=== PATIENT | female | born 1995 | race Hispanic/Latino ===

== ENCOUNTER 2020-04-06 14:18 | Emergency (ER) | payer OTHER ==
[2020-04-06 16:18] LABS: #Basophils 0.1 thou/uL (0.0-0.2); #Eosinphils 0.2 thou/uL (0.0-0.7); #Lymphocytes 2.9 thou/uL (1.20-3.40); #Monocytes 0.6 thou/uL (0.11-0.59); #Neutrophils 4.3 thou/uL (1.40-6.50); %Basophils 0.8 % (0.0-1.0); %Eosinophils 2.2 % (0.0-10.0); %Lymphocytes 35.9 % (21.0-51.0); %Monocytes 7.3 % (0.0-10.0); %Neutrophils 53.6 % (42.0-75.0); Hemoglobin 13.2 g/dL (12.0-16.0); Mean Corpuscular HGB CONC 33.6 g/dL (32.0-36.0); Mean Corpuscular Hemoglobin 30.8 pg (27.0-31.0); Mean Corpuscular Volume 91.9 fL (78.0-98.0); Mean Platelet Volume 7.4 fL (7.4-10.4); Platelet Count 310 thou/uL (130-400); RBC Distribution Width 11.9 % (11.5-14.5); Red Blood Cell (RBC) Count 4.27 mill/uL (4.20-5.40); White Blood Cell (WBC) Count 8.1 thou/uL (4.8-10.8)
[2020-04-06 17:08] LABS: ALT (SGPT) 23 U/L (8-55); AST (SGOT) 18 U/L (5-34); Alkaline Phosphatase 76 U/L (40-110); Anion Gap 13 mmol/L (10-20); BUN (Urea Nitrogen) 7 mg/dL (7.0-18.7); Bilirubin, Total 0.2 mg/dL (0.2-1.2); Calc. Creatinine Clearance 0 mL/min (70-130); Carbon Dioxide 22 mmol/L (22-29); Chloride 106 mmol/L (98-107); Glucose 90 mg/dL (70-105); Potassium 4.1 mmol/L (3.5-5.1); Sodium 137 mmol/L (136-145)
--- NOTE | 2020-04-06 17:12 | ULT ---
PELVIC ULTRASOUND: 04/06/20 HISTORY: and vaginal bleeding. Real time imaging o the pelvis was obtained both transabdominally as well as with an endovaginal prob e. This shows an intrauterine gestational sac with yolk sac and pole. [place] to rump length sam urements are 6 mm corresponding to 6 weeks, 3 days. heart rate is 126 beats per minute. Gestati onal sac is somewhat elongated in appearance. It lies somewhat eccentrically within the endometrium. I do not see a definite subchorionic bleed. Left ovary has small follicles. Right ovary is difficult to visualize but appears unremarkable. Color Doppler evaluation with spectral analysis. Normal flow is shown to both adnexa. IMPRESSION: Intrauterine gestational sac has a slightly eccentric appearance in the endometrium. This may just be related to position of the uterus. The gestational sac and crown to rump length measurements would c orrespond to a gestational age of 6 weeks, 4 days. Estimated date of delivery is 11/26/20. No subchorionic bleed is appreciated. POS: IGL
[2020-04-06 18:29] LABS: Bilirubin Negative (Negative); Blood, Urine Trace (Negative); Clarity Clear (Clear); Glucose, Urine (Dipstick) Normal (Negative); Ketone, Urine Negative (Negative); Leukocyte 75 Leu/uL (Negative); Nitrite Negative (Negative); Protein, Urine (Dipstick) Negative (Neg-Trace); RBC/HPF 0-3 HPF (0-3); Specific Gravity, Urine 1.005 (1.002-1.036); Squamous Epithelial 0-3 HPF (0-3); Urobilinogen Normal mg/dL (Less than 2); WBC/HPF 0-3 HPF (0-3)
[2020-04-06 18:30] LABS: Bacteria/HPF 2+ HPF (None Seen)
== END 2020-04-06 18:56 | disposition home or self-care (01) ==
LOC: ERS 14:18
DX: O20.9 Hemorrhage in early pregnancy, unspecified (principal); O23.91 Unspecified genitourinary tract infection in pregnancy, first trimester; O26.891 Other specified pregnancy related conditions, first trimester; R82.71 Bacteriuria; Z3A.01 Less than 8 weeks gestation of pregnancy
CPT/HCPCS: 36415; 76856; 80053; 81003; 81015; 84702; 85025; 86900; 86901

== ENCOUNTER 2020-07-08 08:30 | Outpatient (CLI) | payer OTHER | END 2020-07-08 08:31 | disposition home or self-care (01) | LOC: BICULT 08:30 | PROVIDERS: ATTEND Family Medicine | DX: O09.892 Supervision of other high risk pregnancies, second trimester (principal) | CPT/HCPCS: 76805 ==

== ENCOUNTER 2021-06-06 07:48 | Day surgery (SDC) | payer OTHER ==
[2021-06-05 15:30] VITALS: BMI 29.6
[2021-06-06] MEDS ORDERED: Midazolam HCl 2 mg/2 ml Vial ONE (08:53)
[2021-06-06] MEDS ORDERED: Sodium Bicarbonate 2.5 MEQ/5 ML VIAL ONE (08:53)
[2021-06-06] MEDS ORDERED: Fentanyl 100 MCG/2 ML VIAL ONE (08:53)
[2021-06-06 12:02] VITALS: TEMP 98.9
[2021-06-06] MEDS ORDERED: Morphine 4 MG/ML VIAL ONE (12:37)
[2021-06-06 13:18] VITALS: BP 130/66
== END 2021-06-06 13:35 | disposition short-term general hospital (02) ==
LOC: SPEC 07:48
PROVIDERS: ATTEND Urology
PROC: 0T9130Z Drainage of Left Kidney with Drainage Device, Percutaneous Approach (ICD-10-PCS; principal; 2021-06-06)
DX: N13.2 Hydronephrosis with renal and ureteral calculous obstruction (principal)
CPT/HCPCS: 50430; 50432; 74150; 76775; J2250; J2270; J3010

== ENCOUNTER 2021-06-06 13:44 | Inpatient (IN) | payer SELFPAY ==
[2021-06-06 14:35] LABS: Hemoglobin 12.4 g/dL (12.0-16.0); Mean Corpuscular HGB CONC 31.4 g/dL (32.0-36.0); Mean Corpuscular Hemoglobin 25.1 pg (27.0-31.0); Mean Corpuscular Volume 79.8 fL (78.0-98.0); Mean Platelet Volume 6.7 fL (7.4-10.4); Platelet Count 627 thou/uL (130-400); RBC Distribution Width 15.9 % (11.5-14.5); Red Blood Cell (RBC) Count 4.93 mill/uL (4.20-5.40); White Blood Cell (WBC) Count 7.4 thou/uL (4.8-10.8)
[2021-06-06 14:54] LABS: Anisocytosis SLIGHT = 6-15 cells (100X) (0-5/hpf); Band 24 % (5-11); Hypochromia SLIGHT = 6-15 cells (100X) (0-5/hpf); Lymphocytes 6 % (21-51); MDiff Complete? YES; Metamyelocyte 1 % (0-0); Monocytes 1 % (0-10); Neutrophil 68 % (42-75); Platelet Morphology Comment Appears Increased
[2021-06-06 14:55] LABS: ALT (SGPT) 23 U/L (8-55); AST (SGOT) 12 U/L (5-34); Albumin 4.2 g/dL (3.5-5.0); Alkaline Phosphatase 118 U/L (40-110); Anion Gap 15 mmol/L (10-20); BUN (Urea Nitrogen) 9 mg/dL (7.0-18.7); Bilirubin, Total 0.4 mg/dL (0.2-1.2); Calc. Creatinine Clearance 0 mL/min (70-130); Calcium 9.4 mg/dL (7.8-10.44); Carbon Dioxide 27 mmol/L (22-29); Chloride 104 mmol/L (98-107); Globulin 4.2 g/dL (2.4-3.5); Glucose 91 mg/dL (70-105); Potassium 3.5 mmol/L (3.5-5.1); Protein, Total 8.4 g/dL (6.0-8.3); Sodium 142 mmol/L (136-145)
[2021-06-06 15:03] LABS: BHCG - Serum Negative (NEGATIVE); Pregs Control Background? CLEAR/WHITE (CLR/WHITE); Pregs Control Bar Appear? YES (CONTROL BAR)
[2021-06-06] MEDS ORDERED: Morphine 4 MG/ML VIAL ONE (15:04)
[2021-06-06] MEDS ORDERED: Cefepime 2 GM VIAL ONE (15:04)
[2021-06-06] MEDS ORDERED: Acetaminophen 325 MG TAB ONE (15:24)
[2021-06-06 16:02] LABS: Bilirubin Negative (Negative); Blood, Urine 3+ (Negative); Clarity Turbid (Clear); Glucose, Urine (Dipstick) Normal (Negative); Ketone, Urine Negative (Negative); Leukocyte 500 Leu/uL (Negative); Nitrite Negative (Negative); Protein, Urine (Dipstick) 20 mg/dL (Neg-Trace); RBC/HPF Greater than 50 HPF (0-3); Specific Gravity, Urine 1.009 (1.002-1.036); Squamous Epithelial 0-3 HPF (0-3); Urobilinogen Normal mg/dL (Less than 2); WBC/HPF 21-50 HPF (0-3); pH, Urine 6.5 (5.0-9.0)
[2021-06-06 16:03] LABS: Bacteria/HPF 1+ HPF (None Seen)
[2021-06-06] MEDS ORDERED: Vancomycin 1 GM in Premix Bag 1 BAG IVPB SCH (16:45)
[2021-06-06 17:13] LABS: SARS-CoV-2 NAA Rapid Test Not Detected (NotDetected)
[2021-06-06] MEDS ORDERED: Acetaminophen 325 MG TAB PO PRN (18:00)
[2021-06-06] MEDS ORDERED: Ondansetron ODT 4 MG TAB PO PRN (18:00)
[2021-06-06] MEDS ORDERED: Acetaminophen 650 MG Suppository PR PRN (18:00)
[2021-06-06] MEDS ORDERED: Ondansetron PF 4 MG/2 ML Vial IVP PRN (18:00)
[2021-06-06] MEDS ORDERED: Morphine 4 MG/ML VIAL SLOW IVP PRN (18:21)
[2021-06-06] MEDS: Lactated Ringer's 1,000 ML IV SCH (20:29)
[2021-06-06 20:30] VITALS: BMI 27.9
[2021-06-06] MEDS: Acetaminophen 500 MG TAB PO SCH (21:15)
[2021-06-07] MEDS: Vancomycin HCl 750 MG in Sodium Chloride 0.9% 250 ML 250 ML IVPB SCH ×3 (01:27→18:12)
[2021-06-07] MEDS: Acetaminophen 500 MG TAB PO SCH ×2 (03:38→09:25)
[2021-06-07] MEDS: Cefepime 2 GM in Sodium Chloride 0.9% 100 ML IVPB SCH ×2 (03:38→15:42)
[2021-06-07] MEDS: Lactated Ringer's 1,000 ML IV SCH ×3 (03:47→15:44)
[2021-06-07 05:15] LABS: #Eosinphils 0.2 thou/uL (0.0-0.7); #Lymphocytes 1.1 thou/uL (1.20-3.40); #Monocytes 0.8 thou/uL (0.11-0.59); #Neutrophils 9.9 thou/uL (1.40-6.50); %Basophils 0.2 % (0.0-1.0); %Eosinophils 1.5 % (0.0-10.0); %Lymphocytes 9.4 % (21.0-51.0); %Monocytes 6.4 % (0.0-10.0); %Neutrophils 82.5 % (42.0-75.0); Hemoglobin 10.5 g/dL (12.0-16.0); Mean Corpuscular Hemoglobin 24.7 pg (27.0-31.0); Mean Corpuscular Volume 79.8 fL (78.0-98.0); Mean Platelet Volume 6.8 fL (7.4-10.4); Platelet Count 504 thou/uL (130-400); RBC Distribution Width 15.7 % (11.5-14.5); Red Blood Cell (RBC) Count 4.26 mill/uL (4.20-5.40)
[2021-06-07 05:37] LABS: ALT (SGPT) 52 U/L (8-55); AST (SGOT) 51 U/L (5-34); Albumin 3.5 g/dL (3.5-5.0); Alkaline Phosphatase 103 U/L (40-110); Anion Gap 11 mmol/L (10-20); BUN (Urea Nitrogen) 9 mg/dL (7.0-18.7); Bilirubin, Total 0.3 mg/dL (0.2-1.2); Calc. Creatinine Clearance 122 mL/min (70-130); Calcium 8.8 mg/dL (7.8-10.44); Carbon Dioxide 24 mmol/L (22-29); Chloride 105 mmol/L (98-107); Globulin 3.4 g/dL (2.4-3.5); Glucose 113 mg/dL (70-105); Potassium 3.6 mmol/L (3.5-5.1); Protein, Total 6.9 g/dL (6.0-8.3); Sodium 136 mmol/L (136-145)
[2021-06-07] MEDS ORDERED: HYDROcodone/Acetaminophen 5/325 mg Tablet PO PRN (06:56)
[2021-06-07] MEDS: HYDROcodone/Acetaminophen 5/325 mg Tablet PO PRN (09:24)
[2021-06-07] MEDS ORDERED: Acetaminophen 325 MG TAB PO PRN (09:28)
[2021-06-07 17:16] LABS: Vancomycin, Trough 7.9 ug/mL
[2021-06-07] MEDS ORDERED: Vancomycin 1 GM in Premix Bag 1 BAG IVPB SCH (20:00)
[2021-06-07] MEDS: Vancomycin HCl 1 GM in Sodium Chloride 0.9% 250 ML 250 ML IVPB SCH (20:50)
[2021-06-07 22:52] LABS: Bacteria/HPF 3+ HPF (None Seen); Bilirubin Negative (Negative); Blood, Urine Trace (Negative); Clarity Clear (Clear); Glucose, Urine (Dipstick) Normal (Negative); Ketone, Urine Negative (Negative); Leukocyte 500 Leu/uL (Negative); Nitrite Negative (Negative); Protein, Urine (Dipstick) Negative (Neg-Trace); Specific Gravity, Urine 1.005 (1.002-1.036); Squamous Epithelial 0-3 HPF (0-3); Urobilinogen Normal mg/dL (Less than 2); WBC/HPF 21-50 HPF (0-3); pH, Urine 7.5 (5.0-9.0)
[2021-06-08] MEDS: Cefepime 2 GM in Sodium Chloride 0.9% 100 ML IVPB SCH ×2 (02:17→14:35)
[2021-06-08] MEDS: Vancomycin HCl 1 GM in Sodium Chloride 0.9% 250 ML 250 ML IVPB SCH ×2 (03:13→12:00)
[2021-06-08 04:56] LABS: #Eosinphils 0.3 thou/uL (0.0-0.7); #Lymphocytes 2.1 thou/uL (1.20-3.40); #Monocytes 0.9 thou/uL (0.11-0.59); #Neutrophils 4.6 thou/uL (1.40-6.50); %Basophils 0.3 % (0.0-1.0); %Eosinophils 3.3 % (0.0-10.0); %Monocytes 11.2 % (0.0-10.0); %Neutrophils 58.3 % (42.0-75.0); Hemoglobin 10.6 g/dL (12.0-16.0); Mean Corpuscular HGB CONC 31.7 g/dL (32.0-36.0); Mean Corpuscular Hemoglobin 25.6 pg (27.0-31.0); Mean Corpuscular Volume 80.7 fL (78.0-98.0); Platelet Count 444 thou/uL (130-400); RBC Distribution Width 15.5 % (11.5-14.5); Red Blood Cell (RBC) Count 4.13 mill/uL (4.20-5.40); White Blood Cell (WBC) Count 7.9 thou/uL (4.8-10.8)
[2021-06-08 05:20] LABS: ALT (SGPT) 104 U/L (8-55); AST (SGOT) 62 U/L (5-34); Albumin 3.4 g/dL (3.5-5.0); Alkaline Phosphatase 120 U/L (40-110); Anion Gap 12 mmol/L (10-20); BUN (Urea Nitrogen) 7 mg/dL (7.0-18.7); Bilirubin, Total 0.2 mg/dL (0.2-1.2); Calc. Creatinine Clearance 131 mL/min (70-130); Calcium 8.9 mg/dL (7.8-10.44); Carbon Dioxide 26 mmol/L (22-29); Chloride 105 mmol/L (98-107); Globulin 3.5 g/dL (2.4-3.5); Glucose 102 mg/dL (70-105); Potassium 3.5 mmol/L (3.5-5.1); Protein, Total 6.9 g/dL (6.0-8.3); Sodium 139 mmol/L (136-145)
[2021-06-09 05:33] LABS: ALT (SGPT) 78 U/L (8-55); AST (SGOT) 29 U/L (5-34); Albumin 3.4 g/dL (3.5-5.0); Alkaline Phosphatase 118 U/L (40-110); Anion Gap 11 mmol/L (10-20); BUN (Urea Nitrogen) 8 mg/dL (7.0-18.7); Bilirubin, Total 0.2 mg/dL (0.2-1.2); Calc. Creatinine Clearance 141 mL/min (70-130); Calcium 8.7 mg/dL (7.8-10.44); Carbon Dioxide 24 mmol/L (22-29); Chloride 105 mmol/L (98-107); Globulin 3.7 g/dL (2.4-3.5); Glucose 99 mg/dL (70-105); Potassium 3.2 mmol/L (3.5-5.1); Protein, Total 7.1 g/dL (6.0-8.3); Sodium 137 mmol/L (136-145)
[2021-06-09 05:41] LABS: #Eosinphils 0.3 thou/uL (0.0-0.7); #Lymphocytes 2.9 thou/uL (1.20-3.40); #Monocytes 0.7 thou/uL (0.11-0.59); %Basophils 0.6 % (0.0-1.0); %Eosinophils 3.7 % (0.0-10.0); %Lymphocytes 41.5 % (21.0-51.0); %Monocytes 10.1 % (0.0-10.0); %Neutrophils 44.1 % (42.0-75.0); Hemoglobin 10.4 g/dL (12.0-16.0); Mean Corpuscular HGB CONC 31.8 g/dL (32.0-36.0); Mean Corpuscular Hemoglobin 25.5 pg (27.0-31.0); Mean Platelet Volume 7.3 fL (7.4-10.4); Platelet Count 470 thou/uL (130-400); RBC Distribution Width 15.7 % (11.5-14.5); Red Blood Cell (RBC) Count 4.08 mill/uL (4.20-5.40); White Blood Cell (WBC) Count 6.9 thou/uL (4.8-10.8)
[2021-06-09 09:56] VITALS: BP 109/74; TEMP 97.9
[2021-06-09] MEDS ORDERED: Potassium Chloride 20 MEQ TAB PO SCH (10:45)
[2021-06-09] MEDS: HYDROcodone/Acetaminophen 5/325 mg Tablet PO PRN (11:22)
[2021-06-09 15:49] LABS: SARS-CoV-2 PCR by NAA Not Detected (NotDetected)
== END 2021-06-09 11:55 | disposition home or self-care (01) | DRG 872 ==
LOC: ERS 13:44 → MSONC 16:42
PROVIDERS: ADMIT Family Medicine; ATTEND Family Medicine
DX: A41.9 Sepsis, unspecified organism (principal); N39.0 Urinary tract infection, site not specified; N20.0 Calculus of kidney; Z20.822 Contact with and (suspected) exposure to COVID-19; Z90.49 Acquired absence of other specified parts of digestive tract; Z93.6 Other artificial openings of urinary tract status; Z87.440 Personal history of urinary (tract) infections
CPT/HCPCS: 36415; 80053; 80202; 81001; 81003; 81015; 83605; 84145; 84703; 85025; 87040; 87086; 96365; 96366; 96367; 96375; J0692; J2270; J3370; J3490; J7050; J7120; U0002; U0003; U0005

== ENCOUNTER 2021-06-27 09:04 | Outpatient (CLI) | payer SELFPAY ==
[2021-06-27 09:33] LABS: Hemoglobin 12.1 g/dL (12.0-15.5); Mean Corpuscular HGB CONC 31.6 g/dL (32.0-36.0); Mean Corpuscular Hemoglobin 24.4 pg (27.0-33.0); Mean Corpuscular Volume 77.4 fl (81.6-98.3); Mean Platelet Volume 9.7 fl (7.4-10.4); Platelet Count 463 10x3/uL (150-450); RBC Distribution Width 18.2 % (11.5-14.5); Red Blood Cell (RBC) Count 4.95 10x6/uL (3.90-5.03); White Blood Cell (WBC) Count 5.4 10x3/uL (3.5-10.5)
[2021-06-27 10:06] LABS: BHCG - Serum Negative (NEGATIVE); Pregs Control Background? CLEAR/WHITE (CLR/WHITE); Pregs Control Bar Appear? YES (CONTROL BAR)
[2021-06-27 10:10] LABS: INR-International Normal Ratio 0.9; Prothrombin Time 10.1 sec (9.5-12.1)
[2021-06-27 10:32] LABS: Chloride 105 mmol/L (98-107); Potassium 4.3 mmol/L (3.5-5.1); Sodium 140 mmol/L (136-145)
[2021-06-27 10:36] LABS: Anion Gap 11 mmol/L (10-20); BUN (Urea Nitrogen) 11 mg/dL (7.0-18.7); Calc. Creatinine Clearance 0 mL/min (70-130); Calcium 9.6 mg/dL (7.8-10.44); Carbon Dioxide 27 mmol/L (22-29); Glucose 92 mg/dL (70-105)
[2021-06-27 15:57] LABS: SARS-CoV-2 PCR by NAA Not Detected (NotDetected)
== END 2021-06-27 09:05 | disposition home or self-care (01) ==
LOC: LABBT 09:04
PROVIDERS: ATTEND Urology
DX: Z01.812 Encounter for preprocedural laboratory examination (principal); N20.0 Calculus of kidney; Z20.822 Contact with and (suspected) exposure to COVID-19
CPT/HCPCS: 80048; 84703; 85027; 85610; 85730; U0003; U0005

== ENCOUNTER 2021-06-28 08:13 | Day surgery (SDC) | payer OTHER ==
[2021-06-26 15:29] VITALS: BMI 29.6
[2021-06-28] MEDS ORDERED: Iopamidol 15 ML ONE (11:15)
[2021-06-28] MEDS ORDERED: Famotidine/PF 20 mg/2ml Vial ONE (11:24)
[2021-06-28] MEDS ORDERED: Fentanyl 100 MCG/2 ML VIAL ONE (11:24)
[2021-06-28] MEDS ORDERED: SUGAMMADEX SODIUM 200 MG/2 ML VIAL ONE (11:26)
[2021-06-28] MEDS ORDERED: Meperidine HCl/PF 25 MG/ML VIAL ONE (11:26)
[2021-06-28] MEDS ORDERED: Meropenem 2 GM in Sodium Chloride 0.9% 100 ML IVPB SCH (11:45)
[2021-06-28] MEDS ORDERED: Ondansetron PF 4 MG/2 ML Vial ONE (11:46)
[2021-06-28] MEDS ORDERED: PHENYLEPHRINE-NS 100 MCG/ML 10 ML SYRINGE ONE (11:46)
[2021-06-28] MEDS ORDERED: Lidocaine 1% PF 5 ML VIAL ONE (11:46)
[2021-06-28] MEDS ORDERED: Dexamethasone 20 MG/5 ML VIAL ONE (11:46)
[2021-06-28] MEDS ORDERED: PROPOFOL 200 MG/20 ML VIAL ONE (11:46)
[2021-06-28] MEDS ORDERED: Metoclopramide HCl 10 MG/2 ML VIAL ONE (11:46)
[2021-06-28] MEDS ORDERED: Levofloxacin 500 mg/D5W 100 ml Premix Bag ONE (12:01)
[2021-06-28] MEDS ORDERED: Oxybutynin 5 MG TAB ONE (12:43)
[2021-06-28] MEDS ORDERED: Phenazopyridine HCl 100 MG TAB ONE (12:43)
== END 2021-06-28 14:15 | disposition home or self-care (01) ==
LOC: SDC 08:13
PROVIDERS: ATTEND Urology
DX: N20.0 Calculus of kidney (principal); Z79.2 Long term (current) use of antibiotics
CPT/HCPCS: 74018; 74420; C2617; J1100; J1956; J2175; J2185; J2405; J2704; J2765; J3010; J3490; Q9967; S0028

== ENCOUNTER 2021-07-24 03:52 | Emergency (ER) | payer SELFPAY ==
[2021-07-24] MEDS ORDERED: Ondansetron PF 4 MG/2 ML Vial ONE (04:25)
[2021-07-24 04:35] LABS: #Eosinphils 0.1 thou/uL (0.0-0.7); #Lymphocytes 2.4 thou/uL (1.20-3.40); #Monocytes 0.4 thou/uL (0.11-0.59); %Basophils 0.8 % (0.0-1.0); %Eosinophils 2.7 % (0.0-10.0); %Lymphocytes 48.7 % (21.0-51.0); %Monocytes 7.9 % (0.0-10.0); %Neutrophils 39.9 % (42.0-75.0); Mean Corpuscular HGB CONC 33.3 g/dL (32.0-36.0); Mean Corpuscular Hemoglobin 27.3 pg (27.0-31.0); Mean Platelet Volume 8.5 fL (7.4-10.4); Platelet Count 346 thou/uL (130-400); Red Blood Cell (RBC) Count 4.75 mill/uL (4.20-5.40); White Blood Cell (WBC) Count 4.9 thou/uL (4.8-10.8)
[2021-07-24 04:46] LABS: BHCG - Serum Negative (NEGATIVE); Pregs Control Background? CLEAR/WHITE (CLR/WHITE); Pregs Control Bar Appear? YES (CONTROL BAR)
[2021-07-24 04:55] LABS: ALT (SGPT) 260 U/L (8-55); AST (SGOT) 339 U/L (5-34); Albumin 4.3 g/dL (3.5-5.0); Alkaline Phosphatase 157 U/L (40-110); Anion Gap 13 mmol/L (10-20); BUN (Urea Nitrogen) 14 mg/dL (7.0-18.7); Bilirubin, Total 0.3 mg/dL (0.2-1.2); Calc. Creatinine Clearance 0 mL/min (70-130); Calcium 9.5 mg/dL (7.8-10.44); Carbon Dioxide 25 mmol/L (22-29); Chloride 103 mmol/L (98-107); Globulin 3.6 g/dL (2.4-3.5); Glucose 114 mg/dL (70-105); Lipase 41 U/L (8-78); Potassium 3.8 mmol/L (3.5-5.1); Protein, Total 7.9 g/dL (6.0-8.3); Sodium 137 mmol/L (136-145)
== END 2021-07-24 06:37 | disposition home or self-care (01) ==
LOC: ERS 03:52
DX: K80.20 Calculus of gallbladder without cholecystitis without obstruction (principal); R79.89 Other specified abnormal findings of blood chemistry
CPT/HCPCS: 76705; 80053; 83690; 84703; 85025; 96374; J2405

== ENCOUNTER 2021-07-25 12:12 | Observation (INO) | payer SELFPAY ==
[2021-07-25 12:45] LABS: #Eosinphils 0.1 thou/uL (0.0-0.7); #Lymphocytes 1.5 thou/uL (1.20-3.40); #Monocytes 0.3 thou/uL (0.11-0.59); #Neutrophils 3.5 thou/uL (1.40-6.50); %Basophils 0.4 % (0.0-1.0); %Eosinophils 0.9 % (0.0-10.0); %Lymphocytes 28.3 % (21.0-51.0); %Monocytes 5.1 % (0.0-10.0); %Neutrophils 65.3 % (42.0-75.0); Mean Corpuscular HGB CONC 32.5 g/dL (32.0-36.0); Mean Corpuscular Hemoglobin 26.6 pg (27.0-31.0); Mean Corpuscular Volume 81.9 fL (78.0-98.0); Platelet Count 417 thou/uL (130-400); RBC Distribution Width 17.3 % (11.5-14.5); Red Blood Cell (RBC) Count 5.26 mill/uL (4.20-5.40); White Blood Cell (WBC) Count 5.3 thou/uL (4.8-10.8)
[2021-07-25 13:16] LABS: ALT (SGPT) 251 U/L (8-55); AST (SGOT) 76 U/L (5-34); Albumin 4.6 g/dL (3.5-5.0); Alkaline Phosphatase 146 U/L (40-110); Anion Gap 10 mmol/L (10-20); BUN (Urea Nitrogen) 13 mg/dL (7.0-18.7); Bilirubin, Total 0.5 mg/dL (0.2-1.2); Calc. Creatinine Clearance 0 mL/min (70-130); Calcium 9.7 mg/dL (7.8-10.44); Carbon Dioxide 28 mmol/L (22-29); Chloride 103 mmol/L (98-107); Globulin 3.9 g/dL (2.4-3.5); Glucose 101 mg/dL (70-105); Lipase 18 U/L (8-78); Potassium 4.3 mmol/L (3.5-5.1); Protein, Total 8.5 g/dL (6.0-8.3); Sodium 137 mmol/L (136-145)
[2021-07-25 14:30] LABS: Clarity Clear (Clear); Glucose, Urine (Dipstick) Normal (Negative); Ketone, Urine 40 mg/dL (Negative); Leukocyte 25 Leu/uL (Negative); Nitrite Negative (Negative); Protein, Urine (Dipstick) 10 mg/dL (Neg-Trace); pH, Urine 7.5 (5.0-9.0)
[2021-07-25 14:31] LABS: Bacteria/HPF 1+ HPF (None Seen); Bilirubin Negative (Negative); Blood, Urine Negative (Negative); RBC/HPF 0-3 HPF (0-3); Squamous Epithelial 0-3 HPF (0-3); Urobilinogen Normal mg/dL (Less than 2); WBC/HPF 0-3 HPF (0-3)
[2021-07-25 15:18] LABS: BHCG - Serum Negative (NEGATIVE); Pregs Control Background? CLEAR/WHITE (CLR/WHITE); Pregs Control Bar Appear? YES (CONTROL BAR)
[2021-07-25] MEDS ORDERED: Ondansetron PF 4 MG/2 ML Vial ONE (15:48)
[2021-07-25] MEDS ORDERED: Morphine 4 MG/ML VIAL ONE (16:31)
[2021-07-25] MEDS ORDERED: traMADol HCl 50 MG TAB PO PRN ×2 (16:37)
[2021-07-25] MEDS ORDERED: Dextrose 5% in Water 1,000 ML IV PRN (16:37)
[2021-07-25] MEDS ORDERED: Promethazine HCl 25 MG/ML VIAL IM PRN (16:37)
[2021-07-25] MEDS ORDERED: Ondansetron PF 4 MG/2 ML Vial IVP PRN (16:37)
[2021-07-25] MEDS ORDERED: Dextrose 50% Abboject 50 ML SYRINGE SLOW IVP PRN (16:37)
[2021-07-25] MEDS ORDERED: cefOXitin 2 GM in Sodium Chloride 0.9% 100 ML IVPB SCH (16:45)
[2021-07-25 18:16] LABS: SARS-CoV-2 NAA Rapid Test Not Detected (NotDetected)
[2021-07-25 18:25] VITALS: BMI 31.5
[2021-07-25] MEDS: Acetaminophen 325 MG TAB PO SCH ×2 (18:53→19:22)
[2021-07-25] MEDS ORDERED: Enoxaparin Sodium 40 MG/0.4 ML SYRINGE SC SCH (21:00)
[2021-07-25] MEDS: Sodium Chloride 0.9% 1,000 ML IV SCH (23:11)
[2021-07-26] MEDS: Acetaminophen 325 MG TAB PO SCH ×3 (01:12→12:26)
[2021-07-26] MEDS: Sodium Chloride 0.9% 1,000 ML IV SCH ×2 (06:03→15:27)
[2021-07-26 07:01] LABS: ALT (SGPT) 152 U/L (8-55); AST (SGOT) 35 U/L (5-34); Albumin 3.8 g/dL (3.5-5.0); Alkaline Phosphatase 110 U/L (40-110); Anion Gap 11 mmol/L (10-20); BUN (Urea Nitrogen) 10 mg/dL (7.0-18.7); Bilirubin, Direct 0.2 mg/dL (0.1-0.3); Bilirubin, Total 0.6 mg/dL (0.2-1.2); Calc. Creatinine Clearance 157 mL/min (70-130); Calcium 9.1 mg/dL (7.8-10.44); Carbon Dioxide 25 mmol/L (22-29); Chloride 106 mmol/L (98-107); Glucose 83 mg/dL (70-105); Magnesium 1.8 mg/dL (1.6-2.6); Phosphorus 2.8 mg/dL (2.3-4.7); Potassium 3.7 mmol/L (3.5-5.1); Protein, Total 6.9 g/dL (6.0-8.3); Sodium 138 mmol/L (136-145)
[2021-07-26] MEDS ORDERED: fentaNYL Citrate/PF 100 MCG/2 ML SYRINGE ONE ×2 (09:27→11:00)
[2021-07-26] MEDS ORDERED: Midazolam HCl 2 mg/2 ml Vial ONE (09:36)
[2021-07-26] MEDS ORDERED: EPINEPHrine 1 MG/ML AMP ONE ×2 (09:50→10:01)
[2021-07-26] MEDS ORDERED: Sodium Chloride 0.9% 100 ML ONE (09:59)
[2021-07-26] MEDS ORDERED: cefOXitin 2 GM VIAL ONE (09:59)
[2021-07-26] MEDS ORDERED: Bupivacaine 0.25% HCL 30 ML VIAL ONE (10:01)
[2021-07-26] MEDS ORDERED: Glycopyrrolate 0.2 MG/ML 5 ML SYRINGE ONE (10:16)
[2021-07-26] MEDS ORDERED: Dexamethasone 20 MG/5 ML VIAL ONE (10:16)
[2021-07-26] MEDS ORDERED: Ketorolac Tromethamine 30 MG/ML VIAL ONE (10:16)
[2021-07-26] MEDS ORDERED: PROPOFOL 200 MG/20 ML VIAL ONE (10:16)
[2021-07-26] MEDS ORDERED: Ondansetron PF 4 MG/2 ML Vial ONE (10:16)
[2021-07-26] MEDS ORDERED: Rocuronium Bromide 10 MG/ML (10ML VIAL) ONE (10:16)
[2021-07-26] MEDS ORDERED: Lidocaine 1% PF 5 ML VIAL ONE (10:16)
[2021-07-26] MEDS ORDERED: Ibuprofen 600 MG TAB PO PRN (11:41)
[2021-07-26] MEDS ORDERED: Ondansetron HCl/PF 4 MG/2 ML Vial IVP PRN (11:44)
[2021-07-26] MEDS ORDERED: HYDROmorphone 2 MG/ML VIAL SLOW IVP PRN (11:44)
[2021-07-26] MEDS ORDERED: Promethazine HCl 25 MG/ML VIAL IM PRN (11:44)
[2021-07-26] MEDS ORDERED: Meperidine HCl/PF 25 MG/ML VIAL SLOW IVP PRN ×2 (11:44)
[2021-07-26] MEDS ORDERED: Promethazine HCl 25 MG/ML VIAL IVPB PRN (11:44)
[2021-07-26] MEDS ORDERED: Meperidine HCl/PF 25 MG/ML VIAL ONE (12:09)
[2021-07-26 12:44] VITALS: BP 111/75; TEMP 98.2
== END 2021-07-26 17:33 | disposition home or self-care (01) ==
LOC: ERS 12:12 → T4-B 16:26
PROVIDERS: ADMIT Surgery; ATTEND Surgery
PROC: 0FT44ZZ Resection of Gallbladder, Percutaneous Endoscopic Approach (ICD-10-PCS; principal; 2021-07-26)
DX: K80.12 Calculus of gallbladder with acute and chronic cholecystitis without obstruction (principal); K66.0 Peritoneal adhesions (postprocedural) (postinfection); Z79.2 Long term (current) use of antibiotics; Z20.822 Contact with and (suspected) exposure to COVID-19
CPT/HCPCS: 36415; 76705; 80048; 80053; 80076; 81003; 81015; 83690; 83735; 84100; 84703; 85025; 88304; 93005; 96372; 96374; 96375; C1713; G0378; J0171; J0694; J1100; J1650; J1885; J2175; J2250; J2270; J2405; J2704; J3490; J7050; S0020; U0002